=== PATIENT | male | born 1950 | race Caucasian/White ===

== ENCOUNTER 2017-12-12 06:43 | Emergency (ER) | payer MEDICARE ==
[~2017-12-12] VITALS: Ht 182.9 cm; Wt 63.6 kg
[2017-12-12 06:48] VITALS: TEMP 98
[2017-12-12] MEDS ORDERED: CILOXAN 5 ML5 ML OU ×2 (07:20→08:14)
[2017-12-12 08:20] VITALS: BP 141/88; PULSE 62
== END 2017-12-12 08:22 | disposition home or self-care (01) ==
LOC: COL.ER 06:43
DX: H10.9 Unspecified conjunctivitis (principal)
CPT/HCPCS: J7040